=== PATIENT | male | born 1965 | race Caucasian/White ===

== ENCOUNTER 2020-03-08 08:34 | Observation (INO) | payer OTHER ==
[~2020-03-08] VITALS: Ht 162.6 cm; Wt 93.0 kg
[2020-03-08] VITALS (12 sets, daily range): BP systolic 130–147; BP diastolic 75–96
[2020-03-08] MEDS ORDERED: ASPIRIN 81 MG CHEW TAB PO ONE ×2 (09:00→12:00)
[2020-03-08 09:36] LABS: BASOPHILS # (AUTO) 0.1 (0.0-0.1); BASOPHILS % 0.4 % (0.0-1.0); EOSINOPHILS % 0.3 % (0.0-6.0); HEMATOCRIT 43.6 % (38.2-49.6); HEMOGLOBIN 14.6 g/dL (14.0-18.0); LYMPHOCYTES # (AUTO) 1.2 (1.0-3.2); LYMPHOCYTES % 9.6 % (18.0-39.1); MEAN CORPUSCULAR HEMOGLOBIN 30.9 pg (28-32); MEAN CORPUSCULAR HGB CONC 33.5 g/dL (31-35); MEAN CORPUSCULAR VOLUME 92.4 fL (81-99); MONOCYTES # (AUTO) 0.6 (0.2-0.8); MONOCYTES % 5.4 % (4.4-11.3); NEUTROPHILS % 83.7 % (38.7-80.0); PLATELET COUNT 261 x10e3/uL (140-360); RED BLOOD COUNT 4.72 x10e6/uL (4.3-5.7); RED CELL DISTRIBUTION WIDTH 12.6 % (11.7-14.4)
--- NOTE | 2020-03-08 09:58 | Emergency Department Note ---
History of Present Illnes History of Present Illness Chief Complaint: Chest Pain History of Present Illness This is a 54 year old male arrives to the ED with complaints of chest pain that woke him from his sleep at 4 AM. Patient describes the pain as pressure central over his sternum. Patient states the pain is slightly worse on exertion when he came from his car to the ED. Patient denies any trauma, admits to seeing Dr. Castillo margin trimmer for routine visit but denies having a cardiac catheterization or any other cardiac workup done. Patient states he is on metoprolol for sinus tachycardia but not for blood pressure. . Historian: Patient Arrival Mode: Car Onset (how long ago): hour(s) Radiation: Reports non-radiation Severity: mild Onset quality: sudden Duration (how long): hour(s) Timing of current episode: intermittent Progression: waxing and waning Chronicity: new Relieving factors: none Exacerbating factors: none Past Medical/Family History Physician Review I have reviewed the patient's past medical and family history. Any updates have been documented here. Past Medical History Recent Fever: No Clinical Suspicion of Infectio: No New/Unexplained Change in Ment: No Past Medical History: Hyperlipedemia Past Surgical History: None Social History Smoking Cessation: Never Smoker Counseling Performed: No Alcohol Use: None Any Illegal Drug Use: No TB Exposure/Symptoms: No Physically hurt or threatened: No Other Last Tetanus: UTD Any Pre-Existing Lines (PICC,: No Is patient up to date on immun: Yes Last Flu: NONE Last Pneumovax: NONE Review of Systems Review of Systems Constitutional: Reports no symptoms EENTM: Reports no symptoms Cardiovascular: Reports as per HPI, Reports chest pain Respiratory: Reports no symptoms Gastrointestinal: Reports no symptoms Genitourinary: Reports no symptoms Musculoskeletal: Reports no symptoms Integumentary: Reports no symptoms Neurological: Reports no symptoms Psychological: Reports no symptoms Endocrine: Reports no symptoms Hematological/Lymphatic: Reports no symptoms Physical Exam Related Data Allergies: Coded Allergies: No Known Allergies (Unverified , 03/08/20) Triage Vital Signs Vital Signs Date Time Temp Pulse Resp B/P (MAP) Pulse Ox O2 Delivery O2 Flow Rate FiO2 03/08/20 08:38 98.1 53 16 142/81 100 Vital signs reviewed: Yes Physical Exam CONSTITUTIONAL Constitutional: Present well-developed, Present well-nourished HENT HENT: Present normocephalic, Present atraumatic, Present oropharynx clear/moist, Present nose normal HENT L/R: Present left ext ear normal, Present right ext ear normal EYES Eyes: Reports PERRL, Reports conjunctivae normal NECK Neck: Present ROM normal PULMONARY Pulmonary: Present effort normal, Present breath sounds normal CARDIOVASCULAR Cardiovascular: Present regular rhythm, Present heart sounds normal, Present capillary refill normal, Present normal rate GASTROINTESTINAL Abdominal: Present soft, Present nontender, Present bowel sounds normal GENITOURINARY Genitourinary: Present exam deferred SKIN Skin: Present warm, Present dry MUSCULOSKELETAL Musculoskeletal: Present ROM normal NEUROLOGICAL Neurological: Present alert, Present oriented x 3, Present no gross motor or sensory deficits PSYCHOLOGICAL Psychological: Present mood/affect normal, Present judgement normal Results Laboratory Result Diagram: 03/08/20 0849 Laboratory Laboratory Tests Test 03/08/20 08:49 White Blood Count 11.95 x10e3/uL (4.8-10.8) Red Blood Count 4.72 x10e6/uL (4.3-5.7) Hemoglobin 14.6 g/dL (14.0-18.0) Hematocrit 43.6 % (38.2-49.6) Mean Corpuscular Volume 92.4 fL (81-99) Mean Corpuscular Hemoglobin 30.9 pg (28-32) Mean Corpuscular Hemoglobin Concent 33.5 g/dL (31-35) Red Cell Distribution Width 12.6 % (11.7-14.4) Platelet Count 261 x10e3/uL (140-360) Neutrophils (%) (Auto) 83.7 % (38.7-80.0) Lymphocytes (%) (Auto) 9.6 % (18.0-39.1) Monocytes (%) (Auto) 5.4 % (4.4-11.3) Eosinophils (%) (Auto) 0.3 % (0.0-6.0) Basophils (%) (Auto) 0.4 % (0.0-1.0) Neutrophils # (Auto) 10.0 (2.1-6.9) Lymphocytes # (Auto) 1.2 (1.0-3.2) Monocytes # (Auto) 0.6 (0.2-0.8) Eosinophils # (Auto) 0.0 (0.0-0.4) Basophils # (Auto) 0.1 (0.0-0.1) Absolute Immature Granulocyte (auto 0.07 x10e3/uL (0-0.1) Lab results reviewed: Yes Imaging Imaging results reviewed: Yes Procedures 12 Lead ECG Interpretation ECG Interpretation : ECG: ECG 1 Hand Laminator: Interpreted by ED physician Prior ECG tracings: reviewed QRS axis: normal ST segments normal: Yes T wave inversion: III Clinical Impression: non-specific ECG Assessment & Plan Medical Decision Making MDM 54-year-old male arrives to the ED with complaints of chest pain that began a f ew hours prior to arrival. Patient with a questionable history of hypertension, has hyperlipidemia on a daily statin. Given patient's description of chest pain and nonspecific T-wave inversions, patient admitted for ACS rule out. Patient's margin trimmer informed the patient admitted for further workup and management. Last Vital Signs Date Time Temp Pulse Resp B/P (MAP) Pulse Ox O2 Delivery O2 Flow Rate FiO2 03/08/20 08:38 98.1 53 16 142/81 100 Medications in the ED Aspirin 81 mg PRN ONCE PO Last administered on 03/08/20at 09:38; Admin Dose 81 MG; Start 03/08/20 at 09:00; Stop 03/08/20 at 09:16; Status DC JORGE CHAVEZ DO Mar 08, 2020 09:57
[2020-03-08 10:04] LABS: CREATINE KINASE MB 1.4 ng/mL (0-5.0)
[2020-03-08 10:05] LABS: ALBUMIN 3.8 g/dL (3.5-5.0); ALBUMIN/GLOBULIN RATIO 1.2 (0.8-2.0); CALCIUM 9.1 mg/dL (8.4-10.2); CREATININE, SERUM 1.3 mg/dL (0.72-1.25)
[2020-03-08] MEDS ORDERED: CLOPIDOGREL BISULFATE 75 MG TAB PO ONE (11:00)
--- NOTE | 2020-03-08 11:18 | NUR ---
RCD PT FROM ER BY BED PT IS ALERT AND ORIENTED VITALS CHECKED PT RESTING ON BED NO DISTRESS NOTED IV PATENT BY SALINE FLUSH ADMISSION ASSESSMENT AND HISTORY DONE INSTRUCTED THE PT REGARDING HOSPITAL POLICY AND VISITORS POLICY AND HOSPITAL ROUTINE BED LOW AND LOCKED CALL LIGHT IN REACH
[2020-03-08 11:40] LABS: THYROID STIMULATING HORMONE 0.863 uIU/mL (0.350-4.940)
[2020-03-08] MEDS: SODIUM CHLORIDE 0.9% 1000ML 1,000 ML IV SCH ×2 (11:50→15:30)
--- NOTE | 2020-03-08 12:16 | Consultation ---
DATE OF CONSULTATION: 03/08/2020 REASON FOR CONSULTATION: Chest pain. CHIEF COMPLAINT: Chest pain. HISTORY OF PRESENT ILLNESS: This is a 54-year-old male with history of hypertension and hyperlipidemia. The patient presents to [facility] ER with complaints of chest pain. Cardiology was consulted to evaluate the patient. The patient is seen in room, reports this morning, woke up about 4:00 a.m. with a pressure tightness sensation, retrosternal, radiating to his left jaw with shortness of breath, severe in nature, therefore came to the ER for further evaluation. Currently, he reports he has had an off and on chest discomfort for the past several days, however, disregarded the symptoms given the symptoms were not severe. However, this a.m., symptoms became very severe. Therefore, came to the ER for further evaluation. Had a long discussion with the patient regarding treatment management, left heart catheterization discussed including the risks and benefits. Questions answered. The patient wishes to proceed with left heart catheterization. PAST MEDICAL HISTORY: Hypertension and hyperlipidemia. PAST SURGICAL HISTORY: Denies any surgeries. FAMILY HISTORY: His mother is alive, history of hypertension, also TIAs. Father is at age of 81. He had a history of cancer. HOME MEDICATIONS: Lipitor 20 mg daily, aspirin 81 mg daily, and metoprolol succinate 25 mg daily. SOCIAL HISTORY: He is . He is a police sergeant. Denies any alcohol or tobacco use. Positive for social alcohol use. ALLERGIES: NO KNOWN ALLERGIES. REVIEW OF SYSTEMS: GENERAL: Denies any recent weight changes, fatigue, weakness, fevers, chills, or night sweats. SKIN: No rashes or sores. HEENT: Denies any nausea, vomiting, blurred vision, double vision, epistaxis, sore throat, or swollen neck. CARDIAC: Positive for chest pain as above. Denies any palpitations. Positive for dyspnea on exertion. No orthopnea, PND, or lower extremity edema. RESPIRATORY: Denies any shortness of breath, any wheezing, coughing, or hemoptysis. GI: Reports good appetite. No nausea, vomiting, diarrhea, constipation, melena or tarry bloody stools. URINARY: Denies any frequency, urgency, or hematuria. VASCULAR: Denies any lower extremity edema or claudication. MUSCULOSKELETAL: Denies any muscle weakness. Positive for joint pains, back pains. NEUROLOGIC: Denies any tremors, weakness, paralysis, fainting, blackouts, or seizures. HEMATOLOGY: Denies any anemia, easy bruising. ENDOCRINE: Denies any heat or cold intolerance, polyuria, polydipsia, or polyphagia. PHYSICAL EXAMINATION: VITAL SIGNS: Height 72 inches, weight 205 pounds. Temperature 98.1, pulse 53, respiratory rate 16, and blood pressure 142/81. GENERAL: Appears stated age, reliable informant. SKIN: No rashes or bruises noted. HEENT: Normocephalic. Pupils are equal and reactive. Extraocular movements are intact. Trachea midline. No JVD. No carotid bruit. HEART: Regular rate and rhythm. PMI about 4th and 5th intercostal space. LUNGS: Bilateral breath sounds clear to auscultation. Good airway entry and exit. ABDOMEN: Soft, nontender, and nondistended. No organomegaly noted. MUSCULOSKELETAL: No lower extremity edema. Good muscle strength throughout. VASCULAR: +2 radial pulses bilaterally, +1 DP, PT pulses bilaterally. NEUROLOGIC: Cranial nerves II through XII seem intact. LABORATORY DATA: Sodium 136, potassium 4.0, BUN 17, creatinine 1.3, and glucose 164. White count 11, hemoglobin 14, hematocrit 43, and platelets 261. EKG showing sinus william with a heart rate of 40. ASSESSMENT: 1. Chest pain. 2. Hypertension. 3. Hyperlipidemia. 4. Hyperglycemia. 5. Bradycardia. PLAN: 1. The patient presents to [facility] ER with complaints of typical chest pain symptoms, unstable in nature. Continues to have chest pain at this moment. We will load the patient with Plavix. I had a long discussion with the patient regarding heart catheterization. Risks and benefits were discussed. All questions were answered. The patient wished to proceed with left heart catheterization. Again, we will place the patient on Plavix and start IV fluid. We will check TSH, lipid, and A1c. 2. Continue the patient on tele monitor. We will hold beta-blake therapy secondary to his bradycardia. Continue tele monitoring. 3. Echo to evaluate heart function and structure. 4. Further recommendations post left heart catheterization. Thank you very much for this consult. Presentation with ACS Load Plavix Cath / PCI risks/ benefits are discussed and explained Dictated by Pradip Collins, KIARRA Lanette Castillo MD DC/YENNY /[id number] MTDHari
--- NOTE | 2020-03-08 13:59 | Diagnostic Imaging Report ---
X-ray chest AP portable Comparison: None History: Chest pain Findings: Central airways unremarkable. Cardiomediastinal silhouettes unremarkable. No pleural effusion. No pneumothorax. No focal lung disease. Visualized skeleton and upper abdomen unremarkable. Impression: No acute cardiopulmonary disease on this exam. Signed by: Jason Cramer MD on 03/08/2020 1:56 PM
--- NOTE | 2020-03-08 14:14 | NUR ---
PT WENT TO PROCEDURE IN SAFE CONDITION
[2020-03-08] MEDS ORDERED: MIDAZOLAM HCL 2 MG/2 ML VIAL ONE (14:15)
[2020-03-08] MEDS ORDERED: SODIUM CHLORIDE 0.9% 50ML 0 ML ONE (14:16)
[2020-03-08] MEDS ORDERED: HEPARIN SOD/SOD CHLORIDE 2,000 ML ONE (14:16)
[2020-03-08] MEDS ORDERED: LIDOCAINE HCL 2% LOCAL 20 ML VIAL ONE (14:16)
[2020-03-08] MEDS ORDERED: BIVALRIUDIN 250 MG/VIAL VIAL IV ONE (14:16)
[2020-03-08] MEDS ORDERED: FENTANYL CITRATE/PF 100MCG/2 ML INJ ONE (14:16)
[2020-03-08] MEDS ORDERED: IOPAMIDOL 370 MG/ML 200 ML INFUS..BTL INJ ONE (14:17)
[2020-03-08] MEDS ORDERED: SODIUM CHLORIDE 0.9% 1000ML 1,000 ML ONE (14:17)
[2020-03-08 14:49] LABS: CHOL/HDL RATIO 5.7 (3.9-4.7)
--- NOTE | 2020-03-08 15:15 | NUR ---
PT BACK AFTER PROCEDURE PT IS ALERT AND ORIENTED NO SIGNS OF BLEEDING ON THE SURGICAL SITE RT GROIN PT NEED 4 MORE HRS REST INSTRUCTED THE PT HE SAID HE UNDERSTOOD REST UP TO 1900 ,FAMILY AT BED SIDE
[2020-03-08] MEDS ORDERED: ACETAMINOPHEN 325 MG TAB PO PRN (15:45)
[2020-03-08] MEDS ORDERED: ONDANSETRON HCL INJ 2MG/ML 2ML 2 MG/ML VIAL IV PRN (15:45)
--- NOTE | 2020-03-08 16:00 | NUR ---
PT RESTING ON BED NO SIGNS OF BLEEDING ON THE SURGICAL SITE RIGHT GROIN
--- NOTE | 2020-03-08 17:00 | NUR ---
PT RESTING ON BED NO SIGNS OF BLEEDING ON THE SURGERY SITE RIGHT GROIN
--- NOTE | 2020-03-08 17:58 | Operative Report ---
DATE OF PROCEDURE: SURGEON: Lanette Castillo MD TITLE OF THE PROCEDURE: Left cardiac catheterization. INDICATION: Unstable coronary syndrome. The patient came to the emergency room, continued to have severe chest pain. TECHNICAL DETAILS: After the usual sterile preparation and draping procedure, intravenous Versed and fentanyl given for sedation, local xylocaine for anesthesia. A 4-Ivorian sheath established in place, Basilio left 4 and 3DRC catheters to engage the coronaries. Pigtail for hemodynamic measurement and left ventriculogram. At the end of the procedure, sheath was removed. Hemostasis achieved manually. No complications. No blood loss. RESULTS: A. Coronary angiogram: 1. Left main: Free of disease. 2. LAD: Minimal plaquing. 3. Circumflex coronary artery: Giving large circumflex artery. 4. Right coronary artery: Minimal plaquing. a. Hemodynamic: Aorta pressure 140/80, LV pressure 140/10. b. Left ventriculogram: The right anterior oblique view showed normal sized ventricle with an ejection fraction of 60% IMPRESSION: 1. Minimal coronary artery disease. 2. Left ventricular ejection fraction of 60%. COMPLICATIONS: None. BLOOD LOSS: None. RECOMMENDATION: Medical therapy. Lanette Castillo MD MOJ/MODL /[id number]
--- NOTE | 2020-03-08 18:39 | NUR ---
PT RESTING ON BED NO SIGNS OF BLEEDING ON THE SURGICAL SITE RIGHT SIDE BED SIDE REPORT GIVEN TO ONCOMING NURSE
[2020-03-08 20:51] LABS: CREATINE KINASE MB 0.9 ng/mL (0-5.0)
[2020-03-08] MEDS ORDERED: ATORVASTATIN 20 MG TAB PO SCH (21:00)
[2020-03-08] MEDS ORDERED: DEXTROSE 50% SYRINGE 50 ML IV PRN (21:15)
--- NOTE | 2020-03-08 22:09 | History and Physical ---
PRIMARY CARE PHYSICIAN: Chet Martinez MD CHIEF COMPLAINT: Chest pain. HISTORY OF PRESENT ILLNESS: This is a 54-year-old male with past medical history of high cholesterol and hypertension, presented to the ER with complaints of chest pain that started around 2 a.m. last night. He reports the pain is a squeezing and pressure-like. It is nonradiating, no alleviating or relieving factors. He denies any shortness of breath, nausea, vomiting, fever, chills, or cough associated with the chest pain. He has had similar episode in the past and has had a stress test in the past, which was negative. In the ER, WBC was 11.95, troponin 0.020, creatinine 1.3, estimated GFR 58. TSH 0.863. Chest x-ray unremarkable. Admitted under observation for further evaluation of his chest pain. PAST MEDICAL HISTORY: 1. High cholesterol. 2. Hypertension. SURGICAL HISTORY: None. FAMILY MEDICAL HISTORY: He denies any medical history. SOCIAL HISTORY: He denies any tobacco or illicit drug use. He reports drinking heavily on the weekends. ALLERGIES: NO KNOWN DRUG ALLERGIES. REVIEW OF SYSTEMS: A 12 system review reviewed and was negative except as reported in HPI. PHYSICAL EXAMINATION: VITAL SIGNS: Temperature 98.6, pulse is 68, respirations 20, blood pressure 132/76, pulse ox 99% on room air. GENERAL: No acute distress. HEENT: Normocephalic, atraumatic. NECK: Supple. LUNGS: Clear to auscultation. CARDIOVASCULAR: Regular rate and rhythm. GI: Soft and nontender. NEUROLOGIC: Alert, awake, and oriented x3. MUSCULOSKELETAL: Moves all extremities. SKIN: Dry and intact. PSYCH: Calm. LABORATORY DATA: WBC 11.95, hemoglobin 14.6, hematocrit 43.6, platelet 261. Sodium 136, potassium 4.0, CO2 25, creatinine 1.3, estimated GFR is 58, glucose 164. Hemoglobin A1c is 6.4, AST 21, ALT 27. Troponin I 0.020, 0.001. Triglycerides 209, cholesterol 200, LDL 123, HDL 35. TSH 0.863. Coronavirus PCR is pending. Chest x-ray, no acute cardiopulmonary disease. IMPRESSION: 1. Chest pain, rule out acute coronary syndrome. Troponin x2 negative, chest x-ray unremarkable. Cardiology has been consulted and plans left heart catheterization. 2. Hypertension. Beta-blake stopped due to bradycardia and we will monitor for now. 3. High cholesterol. Continue on statin. 4. Acute kidney injury. Creatinine 1.3. Likely due to poor p.o. intake. He was given NS in the ER. We will repeat labs in the morning. 5. Mild leukocytosis. May be reactive. Afebrile, chest x-ray negative. We will repeat labs in a.m. 6. Gastroesophageal reflux disease. We will start on Protonix in a.m. 7. Deep venous thrombosis prophylaxis. SCDs due to left heart cath. Dictated by MARIAELENA Pinon Pao Delvalle MD MY/MODL /[id number]
[2020-03-09 00:53] VITALS: BP 146/84
[2020-03-09 05:08] VITALS: BP 153/78
[2020-03-09 05:30] LABS: BASOPHILS % 0.3 % (0.0-1.0); EOSINOPHILS # (AUTO) 0.1 (0.0-0.4); EOSINOPHILS % 0.8 % (0.0-6.0); HEMATOCRIT 40.2 % (38.2-49.6); HEMOGLOBIN 13.5 g/dL (14.0-18.0); LYMPHOCYTES # (AUTO) 2.3 (1.0-3.2); MEAN CORPUSCULAR HEMOGLOBIN 31.5 pg (28-32); MEAN CORPUSCULAR HGB CONC 33.6 g/dL (31-35); MEAN CORPUSCULAR VOLUME 93.9 fL (81-99); MONOCYTES # (AUTO) 1.3 (0.2-0.8); NEUTROPHILS # (AUTO) 6.8 (2.1-6.9); NEUTROPHILS % 64.4 % (38.7-80.0); PLATELET COUNT 229 x10e3/uL (140-360); RED BLOOD COUNT 4.28 x10e6/uL (4.3-5.7); RED CELL DISTRIBUTION WIDTH 12.6 % (11.7-14.4)
[2020-03-09 06:01] LABS: ANION GAP 12.6 mmol/L (8-16); BLOOD UREA NITROGEN 12 mg/dL (7-26); BUN/CREATININE RATIO 12 (6-25); CALCIUM 8.5 mg/dL (8.4-10.2); CARBON DIOXIDE 24 mmol/L (22-29); CHLORIDE 106 mmol/L (98-107); CREATININE, SERUM 1.04 mg/dL (0.72-1.25); EST GLOMERULAR FILTRATION RATE > 60 ML/MIN (60-); GLUCOSE 112 mg/dL (74-118); POTASSIUM 3.6 mmol/L (3.5-5.1); SODIUM 139 mmol/L (136-145)
[2020-03-09 06:32] LABS: CREATINE KINASE 61 IU/L (30-200)
[2020-03-09] MEDS: SODIUM CHLORIDE 0.9% 1000ML 1,000 ML IV SCH (07:01)
[2020-03-09] MEDS: INSULIN REGULAR, HUMAN 100 UNIT/1 ML 3ML VIAL SQ SCH ×2 (07:30→11:30)
[2020-03-09] MEDS ORDERED: PANTOPRAZOLE SOD 40 MG TABEC PO SCH (07:30)
[2020-03-09 08:03] VITALS: BP 162/85
[2020-03-09 08:08] VITALS: BP 162/85
[2020-03-09] MEDS ORDERED: ASPIRIN 81 MG CHEW TAB PO SCH (09:00)
--- NOTE | 2020-03-09 10:20 | NUR ---
Pt. expressed no spiritual or emotional concerns at this time. Manufacturer provided hospitality and instructions on how to contact a assembler tractor if needed. No need to follow at this time. SEBASTIEN LEYVA Manufacturer Spiritual Care Department O: [phone]
--- NOTE | 2020-03-09 11:42 | NUR ---
BP 153/105. Dr.Jeroudi Funez aware. NO new orders
[2020-03-09 11:51] VITALS: BP 153/105
[2020-03-09] MEDS ORDERED: LIPITOR20 MG PO (14:12)
[2020-03-09] MEDS ORDERED: PROTONIX40 MG/ML PO (14:12)
[2020-03-09] MEDS ORDERED: LOSARTAN POTASS25 MG PO (14:12)
--- NOTE | 2020-03-09 14:50 | NUR ---
Left AC IV discontinued. No signs of infiltration noted. 2x2 gauze and coban placed. Refused wheelchair. Accompanied patient to personal car. AAOX4 to time, person, place, situation. Respirations even and unlabored. Denies pain. Discharge instructions and all personal belongings taken with patient
--- NOTE | 2020-03-09 16:17 | Discharge Summary ---
PRIMARY CARE PHYSICIAN: Chet Martinez MD at [facility]. FINAL DISCHARGE DIAGNOSES: 1. Atypical chest pain ruled out acute coronary syndrome. 2. Hypertension. 3. High cholesterol. 4. Acute kidney injury. 5. Mild leukocytosis. 6. Gastroesophageal reflux disease. INTERNATIONAL MANAGER: Dr. Castillo, Cardiology. PROCEDURE: Underwent left heart catheterization which was normal. HISTORY: Per HPI. HOSPITAL COURSE: Mr. Ricketts presented with chest pain, nonradiating. Cardiology was consulted, troponins were trended negative x3. He underwent left heart catheterization by Dr. Castillo, which showed no significant blockage. Recommended medical treatment. He reports chest pain is improved, chest x-ray was unremarkable, he reports drinking alcohol every weekend, his chest pain may be due to gastritis/acid reflux. He was started on Protonix. He is also advised to stop alcohol use and verbalizes understanding. He was given IV fluid hydration for his acute kidney injury and which improved, also leukocytosis resolved with IV fluid hydration. He has no signs of infection. He was monitored overnight on tele, denies any chest pain, shortness of breath, he is afebrile and vital signs are stable. Metoprolol was discontinued due to bradycardia. We will repeat a we will start on losartan 50 mg daily. PHYSICAL EXAMINATION: VITAL SIGNS: Temperature 98.3, pulse is 67, respirations 20, blood pressure 153/105, pulse ox is 95% on room air. GENERAL: No acute distress. HEENT: Normocephalic, atraumatic. CARDIOVASCULAR: Regular rate and rhythm. LUNGS: Clear to auscultation. GI: Soft and nontender. NEUROLOGIC: Alert, awake, and oriented x3. MUSCULOSKELETAL: Moves all extremities. CONDITION AT DISCHARGE: Stable and improved. DISCHARGE MEDICATIONS: Please see medication reconciliation list. FOLLOWUP: Follow up with Dr. Castillo in 10 days. PCP in 1 to 2 weeks. Dictated by MARIAELENA Pinon Pao Delvalle MD MY/MODL /[id number] cc: Chet Martinez MD
== END 2020-03-09 14:43 | disposition home or self-care (01) ==
LOC: ER 08:34 → ERHOLD 09:47 → MED/SURG2 11:39
PROVIDERS: ADMIT Internal Medicine; ATTEND Internal Medicine
DX: R07.89 Other chest pain (principal); E78.5 Hyperlipidemia, unspecified; I10 Essential (primary) hypertension; N17.9 Acute kidney failure, unspecified; D72.829 Elevated white blood cell count, unspecified; K21.9 Gastro-esophageal reflux disease without esophagitis; Z80.9 Family history of malignant neoplasm, unspecified; Z82.3 Family history of stroke; R73.9 Hyperglycemia, unspecified; R00.1 Bradycardia, unspecified; I25.10 Atherosclerotic heart disease of native coronary artery without angina pectoris; Z11.59 Encounter for screening for other viral diseases
CPT/HCPCS: 36415 ×2; 71045; 80048; 80053; 80061; 82550 ×2; 82553 ×2; 82948; 83036; 84443; 84484 ×2; 85025 ×2; 87635; 93005; 93306; 93458; 99284; C1887; G0378 ×2; J2001; J2250; J3010; J7030 ×2; Q9967; S0164; 99152; J0583

== ENCOUNTER 2025-05-20 14:23 | Observation (INO) | payer BC, OTHER ==
[~2025-05-20] VITALS: Ht 182.9 cm; Wt 95.7 kg
[~2025-05-20 14:23] MED LIST: LIPITOR20 MG PO; LOSARTAN POTASS25 MG PO; PROTONIX40 MG/ML PO
[2025-05-20 14:41] VITALS: TEMP 98.1
[2025-05-20] MEDS ORDERED: LOSARTAN-HCTZ1 EACH PO (15:22)
[2025-05-20] MEDS: METOPROLOL TARTRATE 25 MG TAB PO SCH (16:00)
[2025-05-20] MEDS: ASPIRIN 81 MG CHEW TAB PO STA (16:13)
[2025-05-20] MEDS: LABETALOL HCL 5 MG/ML 20ML VIAL IV STA (16:14)
[2025-05-20] MEDS ORDERED: METFORMIN HCL500 M1 PO (16:28)
[2025-05-20 19:07] VITALS: PULSE 61; RESP 15
[2025-05-20 20:30] VITALS: BP 158/80; PULSE 56; RESP 18; TEMP 98.2; O2SAT 100
[2025-05-20 22:33] VITALS: BP 158/80; PULSE 56; RESP 20; TEMP 98.2; O2SAT 100
[2025-05-20 22:42] VITALS: BP 158/80; PULSE 56; RESP 18; TEMP 98.2; O2SAT 100
[2025-05-20] MEDS ORDERED: MELATONIN 5 MG TABLET PO PRN (23:15)
[2025-05-20] MEDS ORDERED: ACETAMINOPHEN 325 MG TAB PO PRN (23:15)
[2025-05-20] MEDS ORDERED: DIPHENHYDRAMINE HCL 25 MG CAP PO PRN (23:15)
[2025-05-20] MEDS ORDERED: SIMETHICONE 80 MG CHEW PO PRN (23:15)
[2025-05-20] MEDS ORDERED: ONDANSETRON HCL INJ 2MG/ML 2ML 2 MG/ML VIAL IV PRN (23:15)
[2025-05-20] MEDS ORDERED: ALBUTEROL/IPRATROPIUM 3 ML NEB NEB PRN (23:15)
[2025-05-20] MEDS ORDERED: BENZONATATE 100 MG CAP PO PRN (23:15)
[2025-05-20] MEDS ORDERED: POTASSIUM CHLORIDE 20 MEQ TAB CR PO PRN (23:15)
[2025-05-20] MEDS ORDERED: DEXTROSE 50% SYRINGE 50 ML IV PRN ×2 (23:15)
[2025-05-20] MEDS ORDERED: HYDROCODONE/APAP 5MG-325MG TAB PO PRN (23:15)
[2025-05-20] MEDS ORDERED: DOCUSATE SODIUM 100 MG CAP PO PRN (23:15)
[2025-05-21] VITALS (20 sets, daily range): BP systolic 112–161; BP diastolic 65–95; PULSE 46–84; RESP 10–26; TEMP 97.6–98.4; O2SAT 95–100
[2025-05-21 06:52] LABS: BASOPHILS % 0.4 % (0.0-1.0); EOSINOPHILS % 1.7 % (0.0-6.0); LYMPHOCYTES % 25.0 % (18.0-39.1); MONOCYTES % 11.0 % (4.4-11.3); NEUTROPHILS % 61.5 % (38.7-80.0); RED CELL DISTRIBUTION WIDTH 12.6 % (11.7-14.4)
[2025-05-21 07:16] LABS: PHOSPHORUS 4.5 MG/DL (2.3-4.7)
[2025-05-21 07:18] LABS: CHOL/HDL RATIO 3.7 (3.9-4.7); EST GLOMERULAR FILTRATION RATE 75.0 ML/MIN (>=60); LDL CHOLESTEROL 71.0 MG/DL (60-130)
[2025-05-21] MEDS: PANTOPRAZOLE SOD 40 MG TABEC PO SCH (07:30)
[2025-05-21] MEDS: INSULIN LISPRO 100 UNIT/1 ML 3ML VIAL SQ SCH (07:30)
[2025-05-21] MEDS: ASPIRIN 81 MG ENTERIC COATED PO SCH (08:31)
[2025-05-21] MEDS: VALSARTAN 160 MG TAB PO SCH (08:31)
[2025-05-21] MEDS: SODIUM CHLORIDE 0.9% 1000ML 1,000 ML IV SCH ×2 (11:06→14:30)
[2025-05-21] MEDS ORDERED: FUROSEMIDE INJ 10 MG/ML 4 ML VIAL IV ONE (17:00)
[2025-05-21] MEDS ORDERED: ENOXAPARIN SOD INJ 40 MG/0.4 ML SYR SC SCH (17:00)
[2025-05-21] MEDS: ATORVASTATIN 20 MG TAB PO SCH (21:09)
[2025-05-21] MEDS: HYDRALAZINE HCL 20 MG/ML VIAL IV PRN (21:10)
[2025-05-22] VITALS (8 sets, daily range): BP systolic 159–180; BP diastolic 78–96; PULSE 56–74; RESP 17–20; TEMP 97.7–98.7; O2SAT 96–100
[2025-05-22] MEDS: LIDOCAINE HCL 2% LOCAL 20 ML VIAL ONE (08:33)
[2025-05-22] MEDS: IOPAMIDOL 370 MG/ML 100 ML INFUS..BTL INJ ONE (08:34)
[2025-05-22] MEDS: SODIUM CHLORIDE 0.9% 1000ML 1,000 ML ONE (08:34)
[2025-05-22] MEDS: NITROGLYCERIN/D5W 200 MCG/ML 250 ML ONE (08:34)
[2025-05-22] MEDS: HEPARIN SOD/SOD CHLORIDE 2,000 ML ONE (08:34)
[2025-05-22] MEDS: VERAPAMIL HCL 2.5 MG/ML 2 ML VIAL ONE (08:35)
[2025-05-22] MEDS: FENTANYL CITRATE/PF 100MCG/2 ML INJ ONE (08:35)
[2025-05-22] MEDS: MIDAZOLAM HCL 2 MG/2 ML VIAL ONE ×2 (08:35)
[2025-05-22] MEDS ORDERED: IOPAMIDOL 370 MG/ML 100 ML INFUS..BTL INJ ONE (09:33)
[2025-05-22] MEDS ORDERED: ASPIRIN EC81 MG PO (16:04)
[2025-05-22] MEDS ORDERED: DIOVAN160 MG PO (16:14)
== END 2025-05-22 17:06 | disposition home or self-care (01) ==
LOC: FSED 14:42 → ERHOLD 15:56 → MED/SURG3 20:46
PROVIDERS: ADMIT Internal Medicine; ATTEND Internal Medicine
DX: R07.89 Other chest pain (principal); I10 Essential (primary) hypertension; I25.10 Atherosclerotic heart disease of native coronary artery without angina pectoris; E78.5 Hyperlipidemia, unspecified; E11.9 Type 2 diabetes mellitus without complications; Z79.84 Long term (current) use of oral hypoglycemic drugs; J47.9 Bronchiectasis, uncomplicated; N28.1 Cyst of kidney, acquired; I77.819 Aortic ectasia, unspecified site
CPT/HCPCS: 36415 ×2; 71046; 71260; 75605; 76937; 80048 ×2; 80061; 80076; 82550 ×2; 83036; 83735; 84100; 84443; 84484 ×2; 85025 ×2; 85379; 93005; 93041; 93306; 93458; 94799 ×2; 99284; C1766; C1769 ×2; C1887 ×2; G0378 ×3; J0360; J2003; J2250; J3010; J3490; J7030; Q9967 ×2; 99152; 99153; J1938; J2470